=== PATIENT | female | born 1955 | race Caucasian/White ===

== ENCOUNTER 2023-04-09 14:17 | Emergency (ER) | payer MEDICARE, OTHER ==
[~2023-04-09] VITALS: Ht 149.9 cm; Wt 78.6 kg
[2023-04-09 14:36] VITALS: BP 154/82; PULSE 76; RESP 16; TEMP 98
[2023-04-09] MEDS ORDERED: METO50 PO (15:02)
[2023-04-09] MEDS ORDERED: LISI40TA9 PO (15:02)
[2023-04-09] MEDS ORDERED: SIMV-46 PO (15:02)
[2023-04-09] MEDS ORDERED: AMOX1TAB16 PO (15:56)
[2023-04-09] MEDS: BACITRACIN 0.9 GM PACKET OINTMENT TP ONE (16:02)
[2023-04-09] MEDS: AMOX TR/POT CLAV 875 MG/125 MG TABLET PO ONE (16:02)
[2023-04-09] MEDS: PERTUSS(ACELL),DIPH,TET VAC/PF 0.5 ML SYRINGE IM. ONE (16:03)
== END 2023-04-09 16:12 | disposition home or self-care (01) ==
LOC: EMS 14:31
DX: S91.051A Open bite, right ankle, initial encounter (principal); Z90.49 Acquired absence of other specified parts of digestive tract; W54.0XXA Bitten by dog, initial encounter; Y93.89 Activity, other specified; Y92.89 Other specified places as the place of occurrence of the external cause; Y99.8 Other external cause status
CPT/HCPCS: 90471; 90715; 99283